=== PATIENT | female | born 1970 | race Caucasian/White ===

== ENCOUNTER 2016-11-15 11:36 | Emergency (ER) | payer MEDICAID ==
[~2016-11-15] VITALS: Ht 162.6 cm; Wt 64.0 kg
[~2016-11-15 11:36] MED LIST: FOLI-17 PO; MAGN400T7 PO; MULT-6 PO; OXYC5TAB3 PO; PANT40TA3 PO; POLY17PO5 PO; PROM25SU35 PO; THIA100T10 PO
[2016-11-15] MEDS ORDERED: MORPHINE SULFATE 4 MG/ML, 1ML IVPush PRN (13:00)
[2016-11-15] MEDS ORDERED: SODIUM CHLORIDE FLUSH 10ML SYR IVF ONE ×2 (13:00→14:30)
[2016-11-15] MEDS ORDERED: FAMOTIDINE 20 MG/2 ML IVP ONE (13:00)
[2016-11-15] MEDS ORDERED: SODIUM CHLORIDE 0.9% 1,000ML IVBOLUS ONE (13:00)
[2016-11-15] MEDS ORDERED: ONDANSETRON 2MG/ML, 2ML IVPush ONE (13:00)
[2016-11-15 13:17] LABS: ASPARTATE AMINO TRANSFERASE 28 U/L (15-37); BLOOD UREA NITROGEN 22 mg/dL (7-18)
[2016-11-15] MEDS ORDERED: KETOROLAC 30 MG/1 ML IVPush ONE (14:30)
[2016-11-15] MEDS ORDERED: METOCLOPRAMIDE 5 MG/ML, 2ML IVPush ONE (14:30)
[2016-11-15] MEDS ORDERED: DIPHENHYDRAMINE 50 MG/ML, 1ML IVPush ONE (14:30)
[2016-11-15] MEDS ORDERED: FAMOTIDINE 20 MG/2 ML ONE (14:43)
[2016-11-15] MEDS ORDERED: DIPHENHYDRAMINE 50 MG/ML, 1ML ONE (14:43)
[2016-11-15] MEDS ORDERED: KETOROLAC 30 MG/1 ML ONE (14:43)
[2016-11-15] MEDS ORDERED: METOCLOPRAMIDE 5 MG/ML, 2ML ONE (14:43)
[2016-11-15 15:32] VITALS: BP 116/76
== END 2016-11-15 16:18 | disposition home or self-care (01) ==
LOC: ED 14:43
DX: G44.209 Tension-type headache, unspecified, not intractable (principal); R10.9 Unspecified abdominal pain; R19.7 Diarrhea, unspecified
CPT/HCPCS: 36415; 80053; 81003; 83690; 84703; 85025; 85651; 96361; 96374; 96375; 99285; J1200; J1885; J2765; J7030; S0028

== ENCOUNTER 2020-03-01 17:29 | Emergency (ER) | payer MEDICAID ==
[~2020-03-01] VITALS: Ht 162.6 cm; Wt 67.2 kg
[~2020-03-01 17:29] MED LIST changes: -MAGN400T7 PO; +MAGN400T9 PO
--- NOTE | 2020-03-01 17:55 | NUR ---
THIS IS A 49 YO FEMALE COMING IN FOR BODY ACHES, SOB, COUGHING, FEVERS AT HOME, "FEELS LIKE I HAVE THE FLU" X2 DAYS. PATIENT IS A&OX4, GCS 15, RESPIRATIONS EVEN AND UNLABORED, LUNG SOUNDS CLEAR BUT SLIGHTLY DIMINISHED THROUGHOUT, SINUS TACHYCARDIA ON 5 LEAD. ERP IN ROOM FOR EVAL. ALL MONITORING IN PLACE, HTN NOTED. ERP SWABBED FOR COVID, WALKED TO LAB. CALL LIGHT IN REACH
[2020-03-01] MEDS ORDERED: IBUPROFEN 600 MG TABLET ONE (17:59)
[2020-03-01 18:00] VITALS: BP 151/85
[2020-03-01] MEDS ORDERED: IBUPROFEN 200 MG TABLET PO ONE (18:00)
[2020-03-01 18:22] LABS: ALANINE AMINOTRANSFERASE 39 U/L (12-78); ANION GAP 9 mmol/L (5-15); CHLORIDE 105 mmol/L (98-107); CREATININE 1.02 mg/dL (0.55-1.02)
[2020-03-01 18:27] LABS: ALKALINE PHOSPHATASE 97 U/L (45-117); BILIRUBIN,TOTAL 0.5 mg/dL (0.2-1.0); TOTAL PROTEIN 7.5 g/dL (6.4-8.2)
[2020-03-01 18:38] LABS: BASOPHILS # (AUTO) 0.02 x10^3/uL (0-0.1); BASOPHILS % (AUTO) 0 % (0-1); EOSINOPHILS # (AUTO) 0.33 x10^3/uL (0-0.4); EOSINOPHILS % (AUTO) 5 % (1-7); LYMPHOCYTES # (AUTO) 2.81 x10^3/uL (1-3.4); LYMPHOCYTES % (AUTO) 38 % (22-44); MD NO; MEAN CORPUSCULAR HGB CONC 32.6 g/dL (32.4-35.8); MEAN CORPUSCULAR VOLUME 95.1 fL (80-100); MEAN PLATELET VOLUME 7.8 fL (7.4-10.4); MONOCYTES # (AUTO) 0.28 x10^3/uL (0.2-0.8); MONOCYTES % (AUTO) 4 % (2-9); NEUTROPHILS # (AUTO) 3.93 x10^3/uL (1.8-6.8); NEUTROPHILS % (AUTO) 53 % (42-75); PLATELET COUNT 220 x10^3/uL (130-400); RED BLOOD COUNT 3.75 x10^6/uL (3.82-5.3); RED CELL DISTRIBUTION WIDTH 13.4 % (9.6-15.2)
--- NOTE | 2020-03-01 18:38 | NUR ---
ALL RESULTS BACK, PATIENT UP FOR RECHECK. MICHAELAN IS AFEBRILE, VSS, NADN AT THIS TIME. CALL LIGHT IN REACH
--- NOTE | 2020-03-01 19:13 | NUR ---
Patient given discharge instructions and they have confirmed that they understand the instructions. Patient ambulatory with steady gait.
== END 2020-03-01 19:16 | disposition home or self-care (01) ==
LOC: ED 18:45
DX: R05 Cough (principal); R50.9 Fever, unspecified; R00.0 Tachycardia, unspecified; Z20.828 Contact with and (suspected) exposure to other viral communicable diseases; F17.200 Nicotine dependence, unspecified, uncomplicated
CPT/HCPCS: 36415; 71045; 80053; 82728; 84145; 85025; 86140; 87635; 93005; 99285